=== PATIENT | female | born 1955 | race Caucasian/White ===

== ENCOUNTER 2025-04-25 12:46 | Emergency (ER) | payer MEDICARE ==
--- NOTE | 2025-04-25 13:16 | ED ---
General Adult HPI - General Chief complaint: Extremity Injury, Upper Stated complaint: R hand pain Time Seen by Provider: 04/25/25 13:02 Source: patient, RN notes reviewed Mode of arrival: ambulatory Limitations: no limitations - History of Present Illness Initial comments: 69 year old female presents to the ED for evaluation of right hand pain. Pt states that she twisted her right hand about 4 weeks ago while outside with her dog. Since then she has swelling of the second knuckle and pain between the first and second digit with pain radiating upwards to her right arm. She denies any injuries or trauma to the right wrist - Related Data Allergies Allergy/AdvReac Type Severity Reaction Status Date / Time acetaminophen [From [place]] Allergy Itching Verified 04/25/25 13:02 hydrocodone [From [place]] Allergy Itching Verified 04/25/25 13:02 hydromorphone [From [place]] Allergy Rash/Hives Verified 04/25/25 13:01 Penicillins Allergy Anaphylaxis Verified 04/25/25 13:01 Review of Systems ROS Statement: Those systems with pertinent positive or pertinent negative responses have been documented in the HPI. ROS Other: All systems not noted in ROS Statement are negative. Past Medical History Past Medical History: CVA/TIA, Diabetes Mellitus, Hyperlipidemia, Hypertension, Osteoarthritis (OA) Past Surgical History: Hysterectomy, Orthopedic Surgery Additional Past Surgical History / Comment(s): brain aneursym repair 2006 Smoking Status: Current every day smoker General Exam Limitations: no limitations General appearance: alert, in no apparent distress Neck exam: Present: normal inspection, full ROM. Absent: tenderness, meningismus, lymphadenopathy Respiratory exam: Present: normal lung sounds bilaterally. Absent: respiratory distress, wheezes, rales, rhonchi, stridor Cardiovascular Exam: Present: regular rate, normal rhythm, normal heart sounds. Absent: systolic murmur, diastolic murmur, rubs, gallop, clicks Right Hand Wrist exam: Present: tenderness (R hand), swelling (R hand). Absent: normal inspection Hand L/R Back: 1 - swelling and pain Vascular: Absent: vascular compromise Course Vital Signs 04/25/25 12:57 Temperature 98.6 F Pulse Rate 66 Respiratory 16 Rate Blood Pressure 163/74 O2 Sat by Pulse 98 Oximetry Medical Decision Making - Medical Decision Making Was pt. sent in by a medical professional or institution (KATIE Albarran, CLINIC RECEPTIONIST, urgent care, hospital, or usp...) When possible be specific @ -No Did you speak to anyone other than the patient for history (EMS, parent, family, police, friend...)? What history was obtained from this source @ -No Did you review nursing and triage notes (agree or disagree)? Why? @ -I reviewed and agree with nursing and triage notes Were old charts reviewed (outside hosp., previous admission, EMS record, old EKG, old radiological studies, urgent care reports/EKG's, usp records)? Report findings @ -No old charts were reviewed Differential Diagnosis (chest pain, altered mental status, abdominal pain women, abdominal pain men, vaginal bleeding, weakness, fever, dyspnea, syncope, headache, dizziness, GI bleed, back pain, seizure, CVA, palpatations, mental health, musculoskeletal)? @ -[Hand sprain hand fracture hand contusion hematoma EKG interpreted by me (3pts min.). @ -None X-rays interpreted by me (1pt min.). @ -The right hand shows no acute osseous abnormality CT interpreted by me (1pt min.). @ -None done U/S interpreted by me (1pt. min.). @ -None done What testing was considered but not performed or refused? (CT, X-rays, U/S, labs)? Why? @ -None What meds were considered but not given or refused? Why? @ -None Did you discuss the management of the patient with other professionals (pro fessionals i.e. KATIE Albarran, CLINIC RECEPTIONIST, lab, RT, psych nurse, psychotherapist social worker, sfdc architect, teacher, marine safety officer, case finishing machine adjuster)? Give summary @ -No Was smoking cessation discussed for >3mins.? @ -No Was critical care preformed (if so, how long)? @ -No Were there social determinants of health that impacted care today? How? (Homelessness, low income, unemployed, alcoholism, drug addiction, transportation, low edu. Level, literacy, decrease access to med. care, group home, rehab)? @ -No Was there de-escalation of care discussed even if they declined (Discuss DNR or withdrawal of care, Hospice)? DNR status @ -No What co-morbidities impacted this encounter? (DM, HTN, Smoking, COPD, CAD, Cancer, CVA, ARF, Chemo, Hep., AIDS, mental health diagnosis, sleep apnea, morbid obesity)? @ -None Was patient admitted / discharged? Hospital course, mention meds given and route, prescriptions, significant lab abnormalities, going to OR and other pertinent info. @ -Discharge patient had right hand contusion, sprain will follow-up with orthopedics as needed return parameters dejuan. Undiagnosed new problem with uncertain prognosis? @ -No Drug Therapy requiring intensive monitoring for toxicity (Heparin, Nitro, Insulin, Cardizem)? @ -No Were any procedures done? @ -No Diagnosis/symptom? @ -Hand pain, sprain Acute, or Chronic, or Acute on Chronic? @ -Acute Uncomplicated (without systemic symptoms) or Complicated (systemic symptoms)? @ -uncomplicated Side effects of treatment? @ -No Exacerbation, Progression, or Severe Exacerbation? @ -No Poses a threat to life or bodily function? How? (Chest pain, [place], NH, pneumonia, PE, COPD, DKA, ARF, appy, cholecystitis, CVA, Diverticulitis, Homicidal, Suicidal, threat to staff... and all critical care pts) @ -No Disposition Clinical Impression: Right hand pain, Sprain of hand, right Disposition: HOME SELF-CARE Condition: Stable Instructions (If sedation given, give patient instructions): Hand Sprain (ED) Additional Instructions: Please return to the Emergency Department if symptoms worsen or any other concerns. Is patient prescribed a controlled substance at d/c from ED?: No Referrals: Nonstaff,Physician [REFERRING] - 1-2 days Lu Starks [Doctor of Osteopathic Medicine] - 1-2 days Time of Disposition: 15:12
--- NOTE | 2025-04-25 15:12 | XR ---
EXAMINATION TYPE: XR hand complete RT DATE OF EXAM: 04/25/2025 2:19 PM COMPARISON: None. CLINICAL INDICATION: Female, 69 years old with history of pain, pain TECHNIQUE: 3 view(s) obtained. FINDINGS: Mild soft tissue swelling is over the distal metacarpal phalangeal joint spaces No acute fracture or dislocation evident. Joint spaces are preserved. Follow up exams can be performed 7-10 days from acute trauma for continued pain IMPRESSION: 1. No acute osseous abnormality right hand [facility], , 04/25/2025 3:10 PM
[2025-04-25 15:21] VITALS: BP 175/81; PULSE 58; RESP 20; TEMP 98.3
== END 2025-04-25 15:21 | disposition home or self-care (01) ==
LOC: EC 12:46
DX: S63.91XA Sprain of unspecified part of right wrist and hand, initial encounter (principal); F17.200 Nicotine dependence, unspecified, uncomplicated; Z86.73 Personal history of transient ischemic attack (TIA), and cerebral infarction without residual deficits; Z88.6 Allergy status to analgesic agent; Z88.5 Allergy status to narcotic agent; Z88.0 Allergy status to penicillin; X50.1XXA Overexertion from prolonged static or awkward postures, initial encounter
CPT/HCPCS: 99283